=== PATIENT | female | born 2000 | race Caucasian/White ===

== ENCOUNTER 2024-05-28 00:45 | Day surgery (SDC) | payer OTHER, SELFPAY ==
[2024-05-25 12:57] VITALS: BMI 43.5
--- OUTSIDE RECORDS SUMMARY | 2024-05-28 00:55 | XMS_ITS | Clinical Summary ---
Author Organization [facility] Address [address] [place] [address] Care Team Providers Care Mammography Tech Name Role Phone Nathalie Smith MD Primary Care Provider [phone] Source Comments [facility],non-owned Affiliates and Associated Physician Practices is amultiple site organization consisting of ambulatory clinics and hospital sitesin [place], [place], [place] and [place]. This disclosure is being madepursuant to the Care Everywhere program and may not contain all information available regarding this patient. Last updated [employer] Allergies No known active allergies Medications * Be aware that medications may not be up to date on this document. Alwaysverify current medications with the patient. 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 Gender Identity Not on file Sexual Orientation Not on file Last Filed Vital Signs Vital Sign Reading Time Taken Comments Blood Pressure 124/84 11/03/2015 2:05 PM CDT Pulse 99 11/03/2015 2:05 PM CDT Temperature 36.8 C (98.3 F) 11/03/2015 2:05 PM CDT Respiratory Rate 18 11/03/2015 2:05 PM CDT Oxygen Saturation 97% 11/03/2015 2:05 PM CDT Inhaled Oxygen Concentration - - Weight 96.2 kg (212 lb) 11/03/2015 2:05 PM CDT Height 161.3 cm (5' 3.5 ) 11/03/2015 2:05 PM CDT Body Mass Index 36.97 11/03/2015 2:05 PM CDT Plan of Treatment Health Maintenance Due Date Last Done Comments HIV SCREENING 06/10/2015 HPV VACCINE (1 - 3-dose series) 06/10/2015 CHLAMYDIA/GONORRHEA SCREENING 2016 MENINGOCOCCAL (Group B) VACC INE SHARED DECISION-MAKING (1 of 2 - Standard) 2016 HEPATITIS C SCREENING 06/05/2018 DTAP/TDAP/TD VACCINES (1 - Tdap) 06/10/2019 HEPATITIS B VACCINE (1 of 3 - 19+ 3-dose series) 06/10/2019 COVID-19 VACCINE (1 - 2023-2 5 season) 2023 DEPRESSION SCREENING 02/08/2024 INFLUENZA VACCINE (Season Ended) 2024 ZOSTER VACCINE (1 of 2) 2050 HIB VACCINE Aged Out No longer eligi ble based on patient's age to complete this topic MENINGOCOCCAL GROUPS A/C/Y/W VACCINE Aged Out No longer eligible b ased on patient's age to complete this topic PNEUMOCOCCAL VACCINE Aged Out No long er eligible based on patient's age to complete this topic Care Teams Mammography Tech Relationship Specialty Start Date End Date Nathalie Smith MD [address] [place] [address] PCP - General Family Medicine 11/03/15
--- OUTSIDE RECORDS SUMMARY | 2024-05-28 00:55 | XMS_ITS | Data Portability ---
Author Organization [facility] Address [address] [place] [address] Care Team Providers Care Belly Dancer Name Role Phone ANGELES SPAIN Internal Medicine Unavailab le Assessment No assessment recorded. Plan of Treatment Reminders Order Date Submit Date Provider Last Modified By Organization Details Last Modified Time Details Appointments None recorded. Lab HbA1c (hemoglob in A1c), blood 2024 025 MIRELAADUREY Gan, [address], [address], [place], [address], 5 11:13:14 TSH, ultra-sen sitive, serum 2024 025 VERNON [facility], [address], [address], [place], [address], 5 11:13:12 HbA1c (hemoglob in A1c), blood 2023 024 VERNON [facility], [address], [address], [place], [address], 4 06:18:49 urinalysi s complete, reflex culture 2023 024 MIRELA Labsarah, 2022 [address], [address], [place], [address], 4 07:09:12 lipid panel, serum 2023 024 MIRELA [facility], [address], [address], [place], [address], 4 06:18:45 TSH, ultra-sen sitive, serum 2023 024 MIRELA Sandoval, 2022 [address], [address], [place], [address], 4 06:18:46 HbA1c (hemoglob in A1c), blood 2023 024 MIRELA Sandoval, 2022 [address], [address], [place], [address], 4 10:11:54 TSH, ultra-sen sitive, serum 2023 024 MIRELA Sandoval, 2022 [address], [address], [place], [address], 4 10:11:55 CBC w/ auto diff 2023 024 MIRELA Sandoval, [address]22 [address], [address], [place], [address], 4 10:11:56 lipid panel, serum 2023 024 MIRELA Sandoval, 2022 [address], [address], [place], [address], 4 10:11:52 urinalysi s, dipstick 2023 024 MIRELA Sandoval, [address]22 [address], [address], [place], [address], 4 10:11:55 CMP, serum or plasma 2023 024 MIRELA Sandoval, [address]22 [address], [address], [place], [address], 4 10:11:53 HIV 1 + 2, meaningfu l use set 2023 024 MIRELA Sandoval, [address], [address], [place], [address], 4 10:11:56 Hepatitis C IgG Ab, qual, serum 2023 024 IMRELA [facility], [address], [address], [place], [address], 4 10:11:52 test, urine 2023 024 MIRELA In-Office Order, Internal Use Only DO Not Attach Compendium DO Not Attach Compendium, Do Not Delete/merge, [id number] 4 11:17:16 Referral gastroent erologist referral - Office visit needed 2024 025 [facility], [address], [address], [place], [address], 5 11:26:19 nutrition ist/dieti nate referral 2023 [facility] Diet[facility], [address], [place], [address], 5 10:05:[address] referral 2018 019 [email or web address] Not available 9 11:51:40 Procedures None recorded. Surgeries None recorded. Imaging None recorded. Medication Orders None recorded. Patient TargetsNo targets recorded. Patient Instructions Encounter Date Encounter Id Patient Instructions Last Modified By Organization Details Last Modified Time 09/25/2018 [id number] nutrition tips - healthy start on eating smart Not available 09/25/2018 18:20:50 learning about healthy eating for teens Not available 09/25/2018 18:20:50 learning about physical activity for teens Not available 09/25/2018 18:20:50 visual acuity* Not availabl e 09/25/2018 18:20:50 Well Visit, Teens: Care Instructions Not available 09/25/2018 18:20:50 07/20/2023 [id number] body mass index: care instructions oajao Not available 07/20/2023 10:47:47 learning about healthy weight oajao Not available 07/20/2023 10:47:47 A healthy lifestyle: care instructions oajao Not available 07/20/2023 10:48:00 Labs Low salt diet Avoid starchy foods and soda Weaver Apprentice Follow up in 6 weeks oajao Not available 07/20/2023 11:54:42 09/02/2023 [id number] Low fat, low saturated fat diet Weaver Apprentice as referred UA today Labs in ~ 4-5 weeks Follow up in 6 weeks oajao Not available 09/02/2023 10:15:29 11/03/2023 [id number] prediabetes: car e instructions oajao Not available 11/03/2023 10:08:38 influenza (flu) vaccine: care instructions oajao Not available 11/03/2023 09:52:48 Labs (Old and ne w orders) Weaver Apprentice as previously referred Follow up in 1 year and PRN oajao Not available 11/03/2023 10:08:24 04/09/2024 [id number] prediabetes: car e instructions oajao Not available 04/09/2024 10:13:52 Labs GI Follow u p in 6 months and PRN oajao Not available 04/09/2024 10:28:38 Reason for Referral Cigarette Tipper Referral for Poo r visual acuity Referring Physician: Angeles Spain, Humidifier Attendant, Encounter Date: 09/25/2018 Weaver Apprentice/dietitian Refer ral for Body mass index 40+ - severely obese Referring Physician: Daren Galloway, Internal Medicine, Encounter Date: 07/20/2023 Dental Intern Referral for Family history of cancer of the esophagus Strong FHX. of malignancy of the UGI tract Office visit needed Referring Physician: Daren Galloway Internal Medicine, Encounter Date: 04/09/2024 Results Created Date Observation Date Name Description Value Unit Range Abnormal Flag Note LastModifiedBy Organization Detail LastModifiedTime 09/26/19 19 09/25/2018 visua l acuit y* R Eye Uncorrected 20/30 Not Available In-O ffice Order Internal Use Only DO Not Attach Compendium DO Not Attach Compendium, Do Not Delete/merge, [id number] 09/25/2018 17:44:25 09/26/1909/25/2018 visua l acuit y* L Eye Uncorrected 20/200 Not Available In-O ffice Order Internal Use Only DO Not Attach Compendium DO Not Attach Compendium, Do Not Delete/merge, [id number] 09/25/2018 17:44:25 07/20/19 24 07/20/2023 pregn larry test, urine HCG negati ve Not Available In-Office Order Internal Use Only DO Not Attach Compendium DO Not Attach Compendium, Do Not Delete/merge, [id number] 07/20/2023 10:59:16 08/05/19 24 08/06/2023 HCV ANTIB SARBJIT hep C virus Ab NON REACTI VE nonrea ctive HCV antib sarbjit alone does not diffe renti ate betwe en previ ously resol kanwal infec tion and activ e infec tion. Equiv ocal and React aminata HCV antib sarbjit resul ts shoul d be follo wed up with an HCV RNA test to suppo rt the diagn osis of activ e HCV infec tion. Not Available [facility] ([facility]) [address] [facility], [place], [address], 08/06/2023 10:11:52 08/05/19 24 08/06/2023 LIPID PANEL cholesterol, total 209 mg/dL 100-19 9 above high normal Not Available [facility] ([facility]) [address] [place], [address], 08/06/2023 10:11:52 08/05/19 24 08/06/2023 LIPID PANEL triglyceride s 206 mg/dL 0-149 above high normal Not Available [facility] ([facility]) [address] [place], [address], 08/06/2023 10:11:52 08/05/19 24 08/06/2023 LIPID PANEL HDL cholesterol 34 mg/dL >39 below low normal Not Available [facility] ([facility]) [address] [facility] [place], [address], 08/06/2023 10:11:52 08/05/19 24 08/06/2023 LIPID PANEL VLDL cholesterol sidra 37 mg/dL 5-40 Not Available [facility] ([facility]) [address] [facility] [place], [address], 08/06/2023 10:11:52 08/05/19 24 08/06/2023 LIPID PANEL LDL chol calc ([facility] [place]) 138 mg/dL 0-99 above high normal Not Available [facility] ([facility]) [address] [facility] [place], [address], 08/06/2023 10:11:52 08/05/19 24 08/06/2023 COMP. METAB OLIC PANEL (14) glucose 104 mg/dL 70-99 above high normal Not Available [facility] ([facility]) [address] [facility] [place], [address], 08/06/2023 10:11:53 08/05/19 24 08/06/2023 COMP. METAB OLIC PANEL (14) BUN 5 mg/dL 6-20 below low normal Not Available [facility] ([facility]) [address] [facility] [place], [address], 08/06/2023 10:11:53 08/05/19 24 08/06/2023 COMP. METAB OLIC PANEL (14) creatinine 0.73 mg/dL 0.57-1 .00 Not Available [facility] ([facility]) [address] [facility] [place], [address], 08/06/2023 10:11:53 08/05/19 24 08/06/2023 COMP. METAB OLIC PANEL (14) eGFR 118 mL/mi n/1.7 3 >59 Not Available [facility] ([facility]) [address] [facility] [place], [address], 08/06/2023 10:11:53 08/05/19 24 08/06/2023 COMP. METAB OLIC PANEL (14) BUN/creatini ne ratio 7 9-23 below low normal Not Available [facility] ([facility]) [address] [facility] [place], [address], 08/06/2023 10:11:53 08/05/19 24 08/06/2023 COMP. METAB OLIC PANEL (14) sodium 137 mmol/ L 134-14 4 Not Available [facility] ([facility]) [address] [facility] [place], [address], 08/06/2023 10:11:53 08/05/19 24 08/06/2023 COMP. METAB OLIC PANEL (14) potassium 4.4 mmol/ L 3.5-5. 2 Not Available [facility] ([facility]) [address] [place], [address], 08/06/2023 10:11:53 08/05/19 24 08/06/2023 COMP. METAB OLIC PANEL (14) chloride 99 mmol/ L 96-106 Not Available [facility] ([facility]) [address] [place], [address], 08/06/2023 10:11:53 08/05/19 24 08/06/2023 COMP. METAB OLIC PANEL (14) carbon dioxide, total 23 mmol/ L 20-29 Not Available [facility] ([facility]) [address] [place], [address], 08/06/2023 10:11:53 08/05/19 24 08/06/2023 COMP. METAB OLIC PANEL (14) calcium 9.8 mg/dL 8.7-10 .2 Not Available [facility] ([facility]) [address] [place], [address], 08/06/2023 10:11:53 08/05/19 24 08/06/2023 COMP. METAB OLIC PANEL (14) protein, total 7.9 g/dL 6.0-8. 5 Not Available [facility] ([facility]) [address] [place], [address], 08/06/2023 10:11:53 08/05/19 24 08/06/2023 COMP. METAB OLIC PANEL (14) albumin 4.6 g/dL 4.0-5. 0 Not Available [facility] ([facility]) [address] [place], [address], 08/06/2023 10:11:53 08/05/19 24 08/06/2023 COMP. METAB OLIC PANEL (14) globulin, total 3.3 g/dL 1.5-4. 5 Not Available [facility] ([facility]) [address] [place], [address], 08/06/2023 10:11:53 08/05/19 24 08/06/2023 COMP. METAB OLIC PANEL (14) bilirubin, total 0.3 mg/dL 0.0-1. 2 Not Available [facility] ([facility]) [address] [place], [address], 08/06/2023 10:11:53 08/05/19 24 08/06/2023 COMP. METAB OLIC PANEL (14) alkaline phosphatase 84 IU/L 44-121 Not Available [facility] ([facility]) [address] [place], [address], 08/06/2023 10:11:53 08/05/19 24 08/06/2023 COMP. METAB OLIC PANEL (14) AST (SGOT) 23 IU/L 0-40 Not Available [facility] ([facility]) [address] [place], [address], 08/06/2023 10:11:53 08/05/19 24 08/06/2023 COMP. METAB OLIC PANEL (14) ALT (SGPT) 19 IU/L 0-32 Not Available [facility] ([facility]) [address] [facility], [place], [address], 08/06/2023 10:11:53 08/05/19 24 08/06/2023 MICRO SCOPI C EXAMI NATIO N WBC >30 /hpf 0-5 abnormal Not Available [facility] ([facility]) [address] [facility], [place], [address], 08/06/2023 10:11:53 08/05/19 24 08/06/2023 MICRO SCOPI C EXAMI NATIO N RBC >30 /hpf 0-2 abnormal Not Available [facility] ([facility]) [address] [facility], [place], [address], 08/06/2023 10:11:53 08/05/19 24 08/06/2023 MICRO SCOPI C EXAMI NATIO N epithelial cells (non renal) >10 /hpf 0-10 abnormal Not Available [facility] ([facility]) [address] [facility], [place], [address], 08/06/2023 10:11:53 08/05/19 24 08/06/2023 MICRO SCOPI C EXAMI NATIO N casts NONE SEEN /lpf nonese en Not Available [facility] ([facility]) [address] [facility], [place], [address], 08/06/2023 10:11:53 08/05/19 24 08/06/2023 MICRO SCOPI C EXAMI NATIO N mucus threads PRESEN T notest ab. Not Available [facility] ([facility]) [address] [facility], [place], [address], 08/06/2023 10:11:53 08/05/19 24 08/06/2023 MICRO SCOPI C EXAMI NATIO N bacteria MANY nonese en/few abnormal Not Available [facility] ([facility]) [address] [facility], [place], [address], 08/06/2023 10:11:53 06/28/20 24 08/06/2023 HEMOG LOBIN A1C hemoglobin A1C 5.9 % 4.8-5. 6 above high normal Predi abete s: 5.7 - 6.4 Diabe petros: >6.4 Glyce josh contr ol for adult s with diabe petros: <7.0 Not Available [facility] ([facility]) [address] [place], [address], 08/06/2023 10:11:54 08/05/19 24 08/06/2023 URINA LYSIS , ROUTI NE specific gravity 1.025 1.005- 1.030 Not Available [facility] ([facility]) [address] [place], [address], 08/06/2023 10:11:55 08/05/19 24 08/06/2023 URINA LYSIS , ROUTI NE pH 5.5 5.0-7. 5 Not Available [facility] ([facility]) [address] [place], [address], 08/06/2023 10:11:55 08/05/19 24 08/06/2023 URINA LYSIS , ROUTI NE urine-color YELLOW yellow Not Available [facility] ([facility]) [address] [place], [address], 08/06/2023 10:11:55 08/05/19 24 08/06/2023 URINA LYSIS , ROUTI NE appearance TURBID clear abnormal Not Available [facility] ([facility]) [address] [place], [address], 08/06/2023 10:11:55 08/05/19 24 08/06/2023 URINA LYSIS , ROUTI NE WBC esterase 2+ negati ve abnormal Not Available [facility] ([facility]) [address] [place], [address], 08/06/2023 10:11:55 08/05/19 24 08/06/2023 URINA LYSIS , ROUTI NE protein 2+ negati ve/tra ce abnormal Not Available [facility] ([facility]) [address] [place], [address], 08/06/2023 10:11:55 08/05/19 24 08/06/2023 URINA LYSIS , ROUTI NE glucose NEGATI VE negati ve Not Available [facility] ([facility]) [address] [place], [address], 08/06/2023 10:11:55 08/05/19 24 08/06/2023 URINA LYSIS , ROUTI NE ketones NEGATI VE negati ve Not Available [facility] ([facility]) [address] [place], [address], 08/06/2023 10:11:55 08/05/19 24 08/06/2023 URINA LYSIS , ROUTI NE occult blood 3+ negati ve abnormal Not Available [facility] ([facility]) [address] [place], [address], 08/06/2023 10:11:55 08/05/19 24 08/06/2023 URINA LYSIS , ROUTI NE bilirubin NEGATI VE negati ve Not Available [facility] ([facility]) [address] [place], [address], 08/06/2023 10:11:55 08/05/19 24 08/06/2023 URINA LYSIS , ROUTI NE urobilinogen ,semi-qn 1.0 mg/dL 0.2-1. 0 Not Available [facility] ([facility]) [address] [place], [address], 08/06/2023 10:11:55 08/05/19 24 08/06/2023 URINA LYSIS , ROUTI NE nitrite, urine NEGATI VE negati ve Not Available [facility] ([facility]) [address] [place], [address], 08/06/2023 10:11:55 08/05/19 24 08/06/2023 URINA LYSIS , ROUTI NE microscopic examination SEE BELOW: Candace durand was indic ated and was perfo rmed. Not Available [facility] ([facility]) [address] [facility], [place], [address], 08/06/2023 10:11:55 08/05/19 24 08/06/2023 TSH TSH 8.950 uIU/m L 0.450- 4.500 above high normal Not Available [facility] ([facility]) [address] [place], [address], 08/06/2023 10:11:55 08/05/19 24 08/06/2023 CBC WITH DIFFE RENTI AL/PL ATELE T WBC 10.3 x10e3 /uL 3.4-10 .8 Not Available [facility] ([facility]) [address] [facility], [place], [address], 08/06/2023 10:11:56 08/05/19 24 08/06/2023 CBC WITH DIFFE RENTI AL/PL ATELE T RBC 5.05 x10e6 /uL 3.77-5 .28 Not Available [facility] ([facility]) [address] [place], [address], 08/06/2023 10:11:56 08/05/19 24 08/06/2023 CBC WITH DIFFE RENTI AL/PL ATELE T hemoglobin 13.1 g/dL 11.1-1 5.9 Not Available [facility] ([facility]) [address] [place], [address], 08/06/2023 10:11:56 08/05/19 24 08/06/2023 CBC WITH DIFFE RENTI AL/PL ATELE T hematocrit 40.4 % 34.0-4 6.6 Not Available [facility] ([facility]) [address] [place], [address], 08/06/2023 10:11:56 08/05/19 24 08/06/2023 CBC WITH DIFFE RENTI AL/PL ATELE T MCV 80 fL 79-97 Not Available [facility] ([facility]) [address] [facility], [place], [address], 08/06/2023 10:11:56 08/05/19 24 08/06/2023 CBC WITH DIFFE RENTI AL/PL ATELE T MCH 25.9 pg 26.6-3 3.0 below low normal Not Available [facility] ([facility]) [address] [place], [address], 08/06/2023 10:11:56 08/05/19 24 08/06/2023 CBC WITH DIFFE RENTI AL/PL ATELE T MCHC 32.4 g/dL 31.5-3 5.7 Not Available [facility] ([facility]) [address] [place], [address], 08/06/2023 10:11:56 08/05/19 24 08/06/2023 CBC WITH DIFFE RENTI AL/PL ATELE T RDW 13.3 % 11.7-1 5.4 Not Available [facility] ([facility]) [address] [place], [address], 08/06/2023 10:11:56 08/05/19 24 08/06/2023 CBC WITH DIFFE RENTI AL/PL ATELE T platelets 470 x10e3 /uL 150-45 0 above high normal Not Available [facility] ([facility]) [address] [place], [address], 08/06/2023 10:11:56 08/05/19 24 08/06/2023 CBC WITH DIFFE RENTI AL/PL ATELE T neutrophils 59 % notest ab. Not Available [facility] ([facility]) [address] [place], [address], 08/06/2023 10:11:56 08/05/19 24 08/06/2023 CBC WITH DIFFE RENTI AL/PL ATELE T lymphs 31 % notest ab. Not Available [facility] ([facility]) [address] [facility], [place], [address], 08/06/2023 10:11:56 08/05/19 24 08/06/2023 CBC WITH DIFFE RENTI AL/PL ATELE T monocytes 5 % notest ab. Not Available [facility] ([facility]) [address] [facility], [place], [address], 08/06/2023 10:11:56 08/05/19 24 08/06/2023 CBC WITH DIFFE RENTI AL/PL ATELE T eos 4 % notest ab. Not Available [facility] ([facility]) [address] [facility], [place], [address], 08/06/2023 10:11:56 08/05/19 24 08/06/2023 CBC WITH DIFFE RENTI AL/PL ATELE T basos 1 % notest ab. Not Available [facility] ([facility]) [address] [facility], [place], [address], 08/06/2023 10:11:56 08/05/19 24 08/06/2023 CBC WITH DIFFE RENTI AL/PL ATELE T neutrophils (absolute) 6.1 x10e3 /uL 1.4-7. 0 Not Available [facility] ([facility]) [address] [facility], [place], [address], 08/06/2023 10:11:56 08/05/19 24 08/06/2023 CBC WITH DIFFE RENTI AL/PL ATELE T lymphs (absolute) 3.2 x10e3 /uL 0.7-3. 1 above high normal Not Available [facility] ([facility]) [address] [facility], [place], [address], 08/06/2023 10:11:56 06/28/20 24 08/06/2023 CBC WITH DIFFE RENTI AL/PL ATELE T monocytes(ab solute) 0.5 x10e3 /uL 0.1-0. 9 Not Available [facility] ([facility]) [address] [facility], [place], [address], 08/06/2023 10:11:56 08/05/19 24 08/06/2023 CBC WITH DIFFE RENTI AL/PL ATELE T eos (absolute) 0.4 x10e3 /uL 0.0-0. 4 Not Available [facility] ([facility]) [address] [facility], [place], [address], 08/06/2023 10:11:56 08/05/19 24 08/06/2023 CBC WITH DIFFE RENTI AL/PL ATELE T baso (absolute) 0.1 x10e3 /uL 0.0-0. 2 Not Available [facility] ([facility]) [address] [facility], [place], [address], 08/06/2023 10:11:56 08/05/19 24 08/06/2023 CBC WITH DIFFE RENTI AL/PL ATELE T immature granulocytes 0 % notest ab. Not Available [facility] ([facility]) [address] [facility], [place], [address], 08/06/2023 10:11:56 08/05/19 24 08/06/2023 CBC WITH DIFFE RENTI AL/PL ATELE T immature grans (abs) 0.0 x10e3 /uL 0.0-0. 1 Not Available [facility] ([facility]) [address] [place], [address], 08/06/2023 10:11:56 08/05/19 24 08/06/2023 HIV AB/P2 4 AG WITH REFLE X HIV Ab/P24 Ag screen NON REACTI VE nonrea ctive HIV Negat aminata HIV-1 /HIV- 2 antib odies and HIV-1 p24 antig en were NOT detec prakash. There is no labor atory evide nce of HIV infec tion. Not Available [facility] ([facility]) [address] [facility], [place], [address], 08/06/2023 10:11:56 09/02/19 24 09/03/2023 MICRO SCOPI C EXAMI NATIO N WBC 11-30 /hpf 0-5 abnormal Not Available [facility] ([facility]) [address] [facility], [place], [address], 09/04/2023 07:09:11 09/02/19 24 09/03/2023 MICRO SCOPI C EXAMI NATIO N RBC 11-30 /hpf 0-2 abnormal Not Available [facility] ([facility]) [address] [facility], [place], [address], 09/04/2023 07:09:11 09/02/19 24 09/03/2023 MICRO SCOPI C EXAMI NATIO N epithelial cells (non renal) >10 /hpf 0-10 abnormal Not Available [facility] ([facility]) [address] [facility], [place], [address], 09/04/2023 07:09:11 09/02/19 24 09/03/2023 MICRO SCOPI C EXAMI NATIO N casts NONE SEEN /lpf nonese en Not Available [facility] ([facility]) [address] [facility], [place], [address], 09/04/2023 07:09:11 09/02/19 24 09/03/2023 MICRO SCOPI C EXAMI NATIO N mucus threads PRESEN T notest ab. Not Available [facility] ([facility]) [address] [place], [address], 09/04/2023 07:09:11 09/02/19 24 09/03/2023 MICRO SCOPI C EXAMI NATIO N bacteria MANY nonese en/few abnormal Not Available [facility] ([facility]) [address] [facility], [place], [address], 09/04/2023 07:09:11 09/02/19 24 09/03/2023 MICRO SCOPI C EXAMI NATIO N yeast PRESEN T nonese en abnormal Not Available [facility] ([facility]) [address] [facility], [place], [address], 09/04/2023 07:09:11 09/02/19 24 09/03/2023 UA/M W/RFL X CULTU RE, ROUTI NE specific gravity 1.023 1.005- 1.030 Not Available [facility] ([facility]) [address] [facility], [place], [address], 09/04/2023 07:09:12 09/02/19 24 09/03/2023 UA/M W/RFL X CULTU RE, ROUTI NE pH 6.0 5.0-7. 5 Not Available [facility] ([facility]) [address] [facility], [place], [address], 09/04/2023 07:09:12 09/02/19 24 09/03/2023 UA/M W/RFL X CULTU RE, ROUTI NE urine-color YELLOW yellow Not Available [facility] ([facility]) [address] [facility], [place], [address], 09/04/2023 07:09:12 09/02/19 24 09/03/2023 UA/M W/RFL X CULTU RE, ROUTI NE appearance CLOUDY clear abnormal Not Available [facility] ([facility]) [address] [facility], [place], [address], 09/04/2023 07:09:12 09/02/19 24 09/03/2023 UA/M W/RFL X CULTU RE, ROUTI NE WBC esterase TRACE negati ve abnormal Not Available [facility] ([facility]) [address] [place], [address], 09/04/2023 07:09:12 09/02/19 24 09/03/2023 UA/M W/RFL X CULTU RE ROUTI NE protein 1+ negati ve/tra ce abnormal Not Available [facility] ([facility]) [address] [place], [address], 09/04/2023 07:09:12 09/02/19 24 09/03/2023 UA/M W/RFL X CULTU REBRENNANI NE glucose NEGATI VE negati ve Not Available [facility] ([facility]) [address] [place], [address], 09/04/2023 07:09:12 09/02/19 24 09/03/2023 UA/M W/RFL X CULTU RECHAZ NE ketones NEGATI VE negati ve Not Available [facility] ([facility]) [address] [place], [address], 09/04/2023 07:09:12 09/02/19 24 09/03/2023 UA/M W/RFL X CULTGrisel RECHAZ NE occult blood 3+ negati ve abnormal Not Available [facility] ([facility]) [address] [place], [address], 09/04/2023 07:09:12 09/02/19 24 09/03/2023 UA/M W/RFL X CULTGrisel RECHAZ NE bilirubin NEGATI VE negati ve Not Available [facility] ([facility]) [address] [place], [address], 09/04/2023 07:09:12 09/02/19 24 09/03/2023 UA/M W/RFL X CULTU RE ROUTI NE urobilinogen ,semi-qn 0.2 mg/dL 0.2-1. 0 Not Available [facility] ([facility]) [address] [place], [address], 09/04/2023 07:09:12 09/02/19 24 09/03/2023 UA/M W/RFL X CULTU RE, ROUTI NE nitrite, urine NEGATI VE negati ve Not Available [facility] ([facility]) [address] [facility], [place], [address], 09/04/2023 07:09:12 09/02/19 24 09/03/2023 UA/M W/RFL X CULTU RE, ROUTI NE microscopic examination SEE BELOW: Micro scopi c was indic ated and was perfo rmed. Not Available [facility] ([facility]) [address] [facility], [place], [address], 09/04/2023 07:09:12 09/02/19 24 09/03/2023 UA/M W/RFL X CULTU RE, ROUTI NE urinalysis reflex COMMEN T This speci men has refle xed to a Urine Cultu re. Not Available [facility] ([facility]) [address] [facility], [place], [address], 09/04/2023 07:09:12 09/02/19 24 09/04/2023 URINE CULTU RE, ROUTI NE urine culture, routine FINAL REPORT Not Available [facility] ([facility]) [address] [facility], [place], [address], 09/04/2023 07:09:12 09/02/19 24 09/04/2023 URINE CULTU RE, ROUTI NE result 1 COMMEN T Mixed uroge nital kristine Great er than 100,0 00 colon y formi ng units per mL Not Available [facility] ([facility]) [address] [place], [address], 09/04/2023 07:09:12 11/16/19 24 11/17/2023 LIPID PANEL cholesterol, total 199 mg/dL 100-19 9 Not Available [facility] ([facility]) [address] [place], [address], 11/17/2023 06:18:44 11/16/19 24 11/17/2023 LIPID PANEL triglyceride s 248 mg/dL 0-149 above high normal Not Available [facility] ([facility]) [address] [place], [address], 11/17/2023 06:18:44 11/16/19 24 11/17/2023 LIPID PANEL HDL cholesterol 32 mg/dL >39 below low normal Not Available [facility] ([facility]) [address] [place], [address], 11/17/2023 06:18:44 11/16/1911/17/2023 LIPID PANEL VLDL cholesterol sidra 44 mg/dL 5-40 above high normal Not Available [facility] ([facility]) [address] [place], [address], 11/17/2023 06:18:44 11/16/1911/17/2023 LIPID PANEL LDL chol calc ([facility] [place]) 123 mg/dL 0-99 above high normal Not Available [facility] ([facility]) [address] [place], [address], 11/17/2023 06:18:44 11/16/1911/17/2023 TSH RFX ON ABNOR MAL TO FREE T4 TSH 6.870 uIU/m L 0.450- 4.500 above high normal Not Available [facility] ([facility]) [address] [place], [address], 11/17/2023 06:18:46 11/16/1911/17/2023 T4F T4,free (direct) 1.03 NG/dL 0.82-1 .77 Not Available [facility] ([facility]) [address] [place], [address], 11/17/2023 06:18:47 11/16/19 24 11/16/2023 HEMOG LOBIN A1C hemoglobin A1C 5.8 % 4.8-5. 6 above high normal Predi abete s: 5.7 - 6.4 Diabe petros: >6.4 Glyce josh contr ol for adult s with diabe petros: <7.0 Not Available [facility] ([facility]) [address] [place], [address], 11/17/2023 06:18:48 04/10/1904/10/2024 TSH RFX ON ABNOR MAL TO FREE T4 TSH 8.070 uIU/m L 0.450- 4.500 above high normal Not Available [facility] ([facility]) [address] [place], [address], 04/10/2024 11:13:12 04/10/1904/10/2024 HEMOG LOBIN A1C hemoglobin A1C 5.7 % 4.8-5. 6 above high normal Predi abete s: 5.7 - 6.4 Diabe petros: >6.4 Glyce josh contr ol for adult s with diabe petros: <7.0 Not Available [facility] ([facility]) [address] [place], [address], 04/10/2024 11:13:13 04/10/1904/10/2024 T4F T4,free (direct) 0.89 NG/dL 0.82-1 .77 Not Available [facility] ([facility]) [address] [place], [address], 04/10/2024 11:13:15 Result Notes None recorded. Problems Name Problem SNOMED Code Status Onset Date Resolution Date Notes Provider Name and Address Organization Details Recorded Time Obese 600876631 Active 2018 JOSE MANUEL CARTER Attn: Phani martínez,[address] [place], [address], [facility] 9 17:45:35 Tetanus diphtheria and acellular pertussis vaccination declined 3520789287816 9108 Active 2023 Daren Galloway MD Attn: Phani martínez[address] [facility] [place], [address], [facility] 4 11:54:14 SARS-CoV-2 vaccination declined 6157846435 Active 2023 Daren Galloway MD Attn: Phani martínez,[address] [facility], [place], [address], [facility] 4 11:54:15 Elevated blood-press ure reading without diagnosis of hypertensio n 655439474 Active 2023 Daren Galloway MD Attn: Phani martínez,[address] [facility], [place], [address], [facility] 4 10:04:00 Disorder of lipid metabolism 645819244 Active 2023 Daren Galloway MD Attn: Phani martínez,[address] [facility], [place], [address], [facility] 4 10:04:18 Subclinical hypothyroid ism 09927003 Active 2023 Marielle vital MD Attn: Phani martínez,[address] [facility], [place], [address], [facility] 4 22:35:42 Problem Notes None recorded. Medical Equipment None Reported. Allergies No known drug allergies Medications Not known to be on any medication Vitals Date Recorded Body height Body mass index (BMI) Body mass index (BMI) Percentile per age and sex Body weight Heart rate Body temperature Oxygen saturation Oxygen saturation in Arterial blood by Pulse oximetry Systolic blood pressure Diastolic blood pressure Provider Name and Address Organization Details Last Updated DateTime 9 162.56 cm 42.4 kg/m2 99 % 150326. 32 g 75 /min 98.4 [degF] 98 % 98 % 122 mm[Hg] 82 mm[Hg] Sweetie Dewey MA [facility] 9 16:18:48 Date Recorded Body height Body mass index (BMI) Body weight Heart rate Oxygen saturation Oxygen saturation in Arterial blood by Pulse oximetry Respiratory rate Body temperature Systolic blood pressure Diastolic blood pressure Provider Name and Address Organization Details Last Updated DateTime 4 162.56 cm 46.4 kg/m2 636908. 38 g 88 /min 98 % 98 % 14 /min 98.4 [degF] 124 mm[Hg] 86 mm[Hg] Marielle Moreau MA [facility] 4 10:19:02 Date Recorded Systolic blood pressure Diastolic blood pressure Provider Name and Address Organization Details Last Updated DateTime 07/20/2023 120 mm[Hg] 90 mm[Hg] Daren Galloway MD Attn: [address]ing[address] [place], [address], [facility] 07/20/2023 10:58:22 Date Recorded Body height Body mass index (BMI) Body weight Heart rate Oxygen saturation Oxygen saturation in Arterial blood by Pulse oximetry Respiratory rate Systolic blood pressure Diastolic blood pressure Provider Name and Address Organization Details Last Updated DateTime 4 162.56 cm 46.9 kg/m2 968690. 72 g 82 /min 98 % 98 % 16 /min 126 mm[Hg] 90 mm[Hg] Marielle Moreau MA [facility] 4 09:56:31 Date Recorded Systolic blood pressure Diastolic blood pressure Provider Name and Address Organization Details Last Updated DateTime 09/02/2023 128 mm[Hg] 78 mm[Hg] Daren Galloway MD Attn: Accounting[address] [place], [address], [facility] 09/02/2023 10:13:10 Date Recorded Body height Body mass index (BMI) Body weight Heart rate Oxygen saturation Oxygen saturation in Arterial blood by Pulse oximetry Respiratory rate Systolic blood pressure Diastolic blood pressure Provider Name and Address Organization Details Last Updated DateTime 4 162.56 cm 46.2 kg/m2 191555. 35 g 98 /min 97 % 97 % 18 /min 124 mm[Hg] 80 mm[Hg] Marielle Moreau MA [facility] 4 09:47:54 Date Recorded Body height Body mass index (BMI) Body weight Heart rate Oxygen saturation Oxygen saturation in Arterial blood by Pulse oximetry Respiratory rate Body temperature Systolic blood pressure Diastolic blood pressure Provider Name and Address Organization Details Last Updated DateTime 5 162.56 cm 47.5 kg/m2 437903. 09 g 82 /min 98 % 98 % 16 /min 98.1 [degF] 112 mm[Hg] 80 mm[Hg] Marielle Moreau MA [facility] 09:49:42 Social History Question Answer Notes LastModified by Organizat ion Details LastModified Time Tobacco Smoking Status Never Smoker Silke RAPHAEL Avery null, [place] [facility] 11/07/2014 16:14:59 What Is Your Level Of Alcohol Consumption? None Information not available 07/20/2023 Animal Exposure? Yes Dog /cat /turtle Information not available 11/07/2014 Do You Wear A Helmet When Biking? No Information not available 11/07/2014 Are You Or Have You Been Involved With Bullying? No Information not available 11/07/2014 What Is Your Level Of Caffeine Consumption? Heavy Information not available 11/07/2014 What Type Of Correctional Nurse Do You Use? Relative Information not available 11/07/2014 What Type Of Diet Are You Following? REGULAR Information not available 11/07/2014 What Is Your Home Situation? Father Information not available 11/07/2014 Do You Use Insect Repellent Routinely? No Information not available 09/25/2018 Car Seat Type Or Seat Belt? Seat Belt Information not available 11/07/2014 Riding In Car Front Seat? Yes Information not available 11/07/2014 What Was The Date Of Your Most Recent Tobacco Screening? 04/09/2024 Information not available 04/09/2024 Pool Exposure Yes Information not available 11/07/2014 Do You Have Any Siblings? 2 Information not available 11/07/2014 Do You Have Smoke And Carbon Monoxide Detectors In Your Home? Yes Information not available 11/07/2014 Are You Passively Exposed To Smoke? Yes Information not available 11/07/2014 Do You Use Any Illicit Or Recreational Drugs? No Information not available 07/20/2023 Do You Use Sunscreen Routinely? No Information not available 09/25/2018 Has Tobacco Cessation Counseling Been Provided? No Information not available 07/20/2023 Year In School 8 Informatio n not available 11/07/2014 Sex: Unknown Functional Status Question Answer Note LastModified by Organization D etails LastModified Time What is your exercise level? Moderate Information not available 11/07/2014 Mental Status None recorded. Family History Relationship Description Onset Age of this Age Resolved Age Notes LastModified by Organization Details LastModified Time Father No current problems or disability [email or web address] Not available 09/25 16:24:13 Mother No current problems or disability [email or web address] Not available 09/25 16:24:13 Medical History Condition Response Other N High Blood Pressure N Atrial Fibrillation N Blood Diseases N Ear or Hearing Problems N Thyroid Problems N Kidney or Bladder Problems N Blood Clots N COPD N Depression N GI Problems N Developmental or Behavioral Disorders N Skin Problems N Premature N Anemia N Constipation N Diabetes N Anxiety Disorder N Muscle, Joint, or Bone Problems N Bedwetting N Vision or Eye Problems N Seizures/Epilepsy N Heart Problems/Murmur N Head Injury/Concussion N Acid Reflux (GERD) N Cancer N Stroke N Allergies N Asthma N ADHD N Bladder or Kidney Problems N High Cholesterol N Hepatitis N Liver Disease N Headaches N Osteoporosis N Heart Failure N Chicken Pox N Autism Spectrum Disorder (ASD) N Gynecological History Statement/Question Response Age at Menarche 13 Current Control Method None Date of LMP 06/08/2023 LMP Unknown Obstetrics History GPAL:G 0 P 0 0 0 0 Immunizations Vaccine Type Date Status Note Provider Nam e and Address Organization Details Recorded Time DTP 1 completed RAPHAEL [place], [place] [facility] 09/26/2018 16:08:57 DTP 1 [place] [facility] 09/26/2018 16:09:19 DTP 3 [place] [facility] 09/26/2018 16:09:35 Hib, unspecified formulation 1 [place] [facility] 09/26/2018 16:10:01 Hib, unspecified formulation 1 [place] [facility] 09/26/2018 16:10:10 Hib, unspecified formulation 3 [place] [facility] 09/26/2018 16:10:20 Hep B, unspecified formulation 1 completed Daren Galloway MD Attn: [address] [facility], [place], [place], [address] [place] [address], [place] [facility] 07/20/2023 10:45:20 Influenza, split virus, quadrivalent, preservative 3 completed Daren Galloway MD Attn: Accounting[address] [facility], [place], [place], [address] [place] [address], [place] [facility] 07/20/2023 10:45:20 Influenza, split virus, quadrivalent, preservative 5 completed Sweetie Dewey [place], [place] [facility] 09/26/2018 16:13:39 meningococcal ACWY, unspecified formulation 2 completed Sweetie [place] [facility] 09/26/2018 16:14:04 Tdap 2 completed Daren Galloway MD Attn: Accounting[address] [facility], [place], [place], [address] [place] [address], [place] [facility] 07/20/2023 10:45:20 Hib-Hep B 1 completed Daren Galloway MD Attn: Accounting[address] [facility], [place], [place], [address] [place] [address], [place] [facility] 07/20/2023 10:45:20 IPV 3 completed Daren Galloway MD Attn: Accounting,[address] [facility], [place], [address] [place] [address], [place] [facility] 07/20/2023 10:45:20 IPV 1 completed Daren Galloway MD Attn: Accounting,[address] [facility], [place], [address] [place] [address], [place] [facility] 07/20/2023 10:45:20 IPV 1 completed Daren Galloway MD Attn: Accounting,[address] [facility], [place], [address] [place] [address], [place] [facility] 07/20/2023 10:45:20 pneumococcal conjugate PCV 7 1 completed Daren Galloway MD Attn: Accounting,[address] [facility], [place], [place], [address] [place] [address], [facility] 07/20/2023 10:45:20 HPV, quadrivalent 2 completed Daren Galloway MD Attn: Accounting,[address] [facility], [place], [address] [place] [address], [place] [facility] 07/20/2023 10:45:20 Hep B, adolescent or pediatric 3 completed Daren Galloway MD Attn: Accounting,[address] [facility], [place], [address] [place] [address], [facility] 07/20/2023 10:45:20 Hep B, adolescent or pediatric 1 completed Daren Galloway MD Attn: Accounting[address] [facility], [place], [address] [place] [address], [facility] 07/20/2023 10:45:20 Hep A, ped/adol, 2 dose 2 completed Daren Galloway MD Attn: Accounting,[address] [facility], [place], [address] [place] [address], [facility] 07/20/2023 10:45:20 meningococcal MCV4P 2 completed Daren Galloway MD Attn: Accounting,[address] [facility], [place], [address] [place] [address], [place] [facility] 07/20/2023 10:45:20 DTaP 3 completed Daren Galloway MD Attn: Accounting,[address] [facility], [place], [address] [place] [address], [place] [facility] 07/20/2023 10:45:20 DTaP 1 completed Daren Galloway MD Attn: Accounting,[address] [facility], [place], [address] [place] [address], [place] [facility] 07/20/2023 10:45:20 DTaP 1 completed Daren Galloway MD Attn: Accounting,[address] [facility], [place], [address], [facility] 07/20/2023 10:45:21 Influenza, live, quadrivalent, intranasal 3 completed Daren Galloway MD Attn: Accounting[address] [facility], [place], [address], [facility] 07/20/2023 10:45:21 Influenza, split virus, quadrivalent, PF 3 completed Daren Galloway MD Attn: Accounting[address] [facility], [place], [address], [facility] 07/20/2023 10:45:21 meningococcal MCV4P 9 completed Not Available [facility] 02/24/2019 02:47:16 HPV9 9 completed Not Available [facility] 02/24/2019 02:38:05 meningococcal B, OMV 9 completed Not Available [facility] 02/24/2019 02:38:04 Influenza, live, quadrivalent, intranasal 5 completed Not Available [facility] 02/24/2019 02:32:30 Influenza, split virus, trivalent, preservative 4 completed Daren Galloway MD Attn: Accounting[address] [facility], [place], [address], [facility] 11/03/2023 10:34:16 Past Encounters Encounter ID Performer Location Encounter Start Date Encounter Closed Date Diagnosis/Indication Diagnosis SNOMED-CT Code Diagnosis ICD10 Code Diagnosis Note [id number] Ana Morocho (Peds) [address] [place] [address] 11/07/2014 15:54:33 11/07/2014 16:53:18 Removal of suture 44418487 Z48.02 2 sutures removed from dorsum of hand. ER report was not able to be obtained before patient being seen, but reviewed patient's paperwork (which did not have details of suture location or number.). Will obtain ER report. Bandage placed on hand. Recommend still cleaning all wounds BID at least with antibacter ial soap and applying antibacter ial ointment BID until healed. RTC if increase in redness, fever or other signs of infection (discussed ) Administra tion of influenza vaccine 05797997 Z23 [id number] JOSE MANUEL BIAN ([facility]) [address] [place] [phone] 09/25/2018 15:23:13 09/26/2018 10:45:25 History and physical examination, school 71086399 Z02.0 Active or passive immunization 475886517 Z23 Diet education 60934979 Z71.3 Obese 912927227 E66.9 Exercises education, guidance, and counseling 902972745 Z71.82 Poor visual acuity 41737 8008 H53.8 L eye 20/200. Pt reports wearing eyeglasses . Last eye exam was last year. Needs repeat. [id number] MD Bailee Canseco (Adult Med) [address] [place] [phone] 07/20/2023 09:59:20 07/21/2023 14:39:51 General examination of patient 146154209 Z00.01 Weight gain 0926375 R63. 5 Body mass index 40+ - severely obese 585439721 Z68.42 Overweight 934072917 E66 .3 Tetanus di phtheria and acellular pertussis vaccination declined 8008781437 4558967 Z28.20 SARS-CoV-2 vaccination declined 9035098461 Z28.21 [id number] MD Bailee Canseco (Adult Med) [address] [place] [phone] 09/02/2023 09:35:10 09/06/2023 11:31:41 Weight gain 4935721 R63.5 Elevated blood-pressure reading without diagnosis of hypertension 603333328 R03.0 128/78 when it was rechecked Disorder o f lipid metabolism 639920895 E78.9 Low fat diet Thyroid st imulating hormone level above reference range 995056924 R94.6 Abnormal urinalysis 1672 08854 R82.90 [id number] MD Bailee Canseco (Adult Med) [address] [place] [address] 11/03/2023 09:35:18 11/04/2023 13:38:47 Administration of influenza vaccine 46888571 Z23 Disorder o f lipid metabolism 933920471 E78.9 Low fat diet Abnormal urinalysis 1672 24858 R82.90 Asymptomat icUC 09/05/2023 mixed kristine Impaired f asting glycemia 944200048 R73.01 [id number] Daren Galloway MD [facility] (Adult Med) [address] [place] [phone] 04/09/2024 09:31:43 04/10/2024 12:23:46 Family history of cancer of the esophagus 909664575 Z80.0 GI Impaired f asting glycemia 979567165 R73.01 Thyroid fu nction tests abnormal 499787999 R94.6 Health Concerns Section Related Observation LastModified by Organization Detai ls LastModified Time None Recorded Concern Status LastModified by Organization Details LastModified Time None Recorded Advance Directives Directive None Recorded Payers Encounter Date Sequence Insurance Name Policy Number Policy Black Covered Member ID Black Member ID Guarantor Name 09/25/2018 1 [facility] - DOS PRIOR TO 2020 (MEDICAID REPLACEMENT - HMO) Amy Krupco [id number] Preston Krupco 07/20/2023 1 [employer] Preston Krupco [id number] I Preston Krupco 09/02/2023 1 [employer] Amy Krupco [id number] I Preston Krupco 11/03/2023 1 [employer] AMER[employer]Jian Reyes Krupco [id number] I Preston Krupco 04/09/2024 1 [employer] Amy Krupco [id number] I Preston Krupco Notes Date Note Type Note Provider Name and Address Organization Details Recorded Time 09/25/2018 text/html 18yo F presents for school physical. Going into 12th grade. No plans for college - doesn't know what she is going to do after high school yet. Likes math. JOSE MANUEL BAIN Attn: Accounting[address] [facility], [place], [address], [facility] 09/26/2018 18:40:35 07/20/2023 text/html Accompanied by h er sister, Angeles Napoles physical I can't lose weight She has a hard time understanding words When she snores, she snores a lot when she is on her back 23 y/o WF who is here with her sister, she was previously under the care of a different provider and has difficulty losing weight. She walks and she has been careful with her diet. Daren Galloway MD Attn: [address] [facility], [place], [address], [facility] 07/20/2023 11:55:14 09/02/2023 text/html Here with her da d I guess a follow up Daren Galloway MD Attn: Accounting, [address] [facility], [place], [address], [facility] 09/02/2023 10:44:00 11/03/2023 text/html Here with a gentleman I think it is just a follow up She denies any urinary symptoms of any sort Daren Galloway MD Attn: Accounting, [address] [facility], [place], [address], [facility] 11/03/2023 10:35:09 04/09/2024 text/html Here with her father who provides most of the history, Doing okay: They said it is hereditary for the kids to get it checked out Her father was diagnosed with a malignancy on EGD and was told that his children should get screened as well. Daren Galloway MD Attn: Accounting, [address] [facility], [place], [address], [facility] 04/09/2024 10:28:57 OBGyn Episode No OBEpisode recorded.
[2024-05-28 09:53] VITALS: BP 132/97; PULSE 97; RESP 18; TEMP 36.1; O2SAT 99
[2024-05-28 09:56] LABS: BEDSIDEPREGUCG Negative (Negative)
[2024-05-28] MEDS: LACTATED RINGERS 1,000 ML 150 ML IV CONT (10:11)
--- NOTE | 2024-05-28 10:13 | P.PNAN_ITS ---
Anes - Initial Pre Proc Eval Procedure: Operation Date: 05/28/24 11:00 Proposed Procedures p Esophagogastroduodenoscopy EGD - James Mason MD Date/Time: 05/28/24 10:13 Surgeon: James Mason MD Pre Op Diagnosis: Family Hx of malignant neoplasm of digestive Organ Patient Data Age: 23 Gender: F Height: 1.7 m Weight: 129.8 kg Last Vital Signs Temp 36.1 C L 05/28/24 09:53 Pulse 97 05/28/24 09:53 Resp 18 05/28/24 09:53 BP 132/97 H 05/28/24 09:53 Pulse Ox 99 05/28/24 09:53 O2 Del Method Room Air 05/28/24 09:53 Allergies Allergy/AdvReac Type Severity Reaction Status Date / Time No Known Allergies Allergy Mild Verified 05/28/24 09:52 Home Medications ?Medication ?Instructions ?Recorded ?Confirmed ?Type No Home Medications 05/25/24 05/25/24 History Laboratory Tests 05/28/24 09:53 POC Urine HCG, Qual Negative (Negative) Patient hx anesthesia problems: none Family hx anesthesia problems: none Results Review: All pre-operative results and documents have been reviewed as part of the pre- operative evaluation. [facility] Past Medical History Medical History (Updated 05/28/24 @ 10:13 by Mychal Lopez MD) Morbid obesity Family History Family History (Updated 05/28/24 @ 10:14 by Mychal Lopez MD) Other Esophageal cancer Social History Social History Smoking status: Never smoker Substance use type: does not use Living arrangements: with family Spiritual care concerns: No Anes - Eval Final PreProcedure Day of Procedure 05/28/24 10:13 Patient weight: morbidly obese Heart: regular rate and rhythm Lungs: clear to auscultation Airway: Mallampati scale class II Neurological: confused Last oral intake: >/= 8 hours ASA classification: III Emergent: no Anesthetic plan: proceed Anesthesia type and monitoring: general GIVS and standard monitoring Results Review: All pre-operative results and documents have been reviewed as part of the pre- operative evaluation. Informed Consent: The patient's anesthetic plan and its attendant risks and benefits were discussed with the patient/family/POA. Questions were solicited and answers pr ovided to the satisfaction of the patient/family/POA.
--- NOTE | 2024-05-28 10:57 | PM.HPGS ---
History of Present Illness History of Present Illness Consent: Risks, benefits, and alternatives have been discussed and questions answered. Patient agrees to proceed with procedure. Chief complaint: Family Hx of malignant neoplasm of digestive Organ Narrative: Amy Lakhani is a 23 year old female here for egd, father just recently diagnosed with esophageal cancer Review of Systems Review of Systems: All systems reviewed & are unremarkable except as noted in HPI and below PMFSH Past Medical History Medical History (Updated 05/28/24 @ 10:58 by James Mason MD) Family history of esophageal cancer Morbid obesity Family History Family History (Updated 05/28/24 @ 10:14 by Mychal Lopez MD) Other Esophageal cancer Social History Social History Smoking status: Never smoker Substance use type: does not use Living arrangements: with family Spiritual care concerns: No Meds Home Medications and Allergies Home Medications ?Medication ?Instructions ?Recorded ?Confirmed ?Type No Home Medications 05/25/24 05/25/24 History Allergies Allergy/AdvReac Type Severity Reaction Status Date / Time No Known Allergies Allergy Mild Verified 05/28/24 09:52 Vital Signs Vital Signs - 24 hr 05/28/24 09:53 Temperature 97 F L Pulse Rate 97 Respiratory Rate 18 Blood Pressure 132/97 H Pulse Oximetry 99 Oxygen Delivery Room Air Exam Const: General: comfortable and no acute distress HENMT: Face/Nose/Sinus: Normal nares present Eyes: General: appearance normal, both eyes and all related structures Neck: Neck: no JVD Resp: Auscultation: clear to auscultation bilaterally Cardio: Rate: regular rate Rhythm: regular rhythm GI: Inspection: non-distended GI Palp: Yes Soft to palpation Skin: General skin exam: normal color Neuro: General: gait normal Speech: normal speech Extrem: General: normal to inspection Psych: Mental Status: mental status grossly normal Assessment and Plan Assessment and plan (1) Family history of esophageal cancer: Code(s): Z80.0 - Family history of malignant neoplasm of digestive organs Status: Acute Assessment and Plan: egd
[2024-05-28 11:07] VITALS: BP 103/64; PULSE 76; RESP 25; O2SAT 99
[2024-05-28 11:17] VITALS: BP 133/78; PULSE 90; RESP 22; O2SAT 98
[2024-05-28 11:27] VITALS: BP 133/82; PULSE 79; RESP 21; O2SAT 100
== END 2024-05-28 11:28 | disposition home or self-care (01) ==
PROVIDERS: Anesthesiology; PCP Internal Medicine Infectious Disease; Referring Provider Internal Medicine Infectious Disease; Visit Provider Internal Medicine Gastroenterology
PROC: 0DJ08ZZ Inspection of Upper Intestinal Tract, Via Natural or Artificial Opening Endoscopic (ICD-10-PCS; CPT 43239; principal; 2024-05-28 11:00)
DX: Z13.810 Encounter for screening for upper gastrointestinal disorder (principal); K21.00 Gastro-esophageal reflux disease with esophagitis, without bleeding; E66.01 Morbid (severe) obesity due to excess calories; Z68.41 Body mass index [BMI] 40.0-44.9, adult; Z80.0 Family history of malignant neoplasm of digestive organs
CPT/HCPCS: 43239; 88305; J2003; J2704; J7120